=== PATIENT | male | born 1990 | race Hispanic/Latino ===

== ENCOUNTER 2016-09-19 00:07 | Emergency (ER) | payer BC ==
[2016-09-19 00:29] VITALS: BP 142/76; PULSE 82; RESP 16; TEMP 98.8; O2SAT 97
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
[2016-09-19] MEDS ORDERED: Sterile Water 10 ML IV ONE (01:31)
[2016-09-19] MEDS ORDERED: cefTRIAXone (Rocephin) 250 mg Inj IM ONE (01:32)
[2016-09-19] MEDS ORDERED: cefTRIAXone (Rocephin) 250 mg Inj ONE (01:32)
== END 2016-09-19 04:39 | disposition home or self-care (01) ==
LOC: H.ER 00:07
DX: Z20.2 Contact with and (suspected) exposure to infections with a predominantly sexual mode of transmission (principal)
CPT/HCPCS: 87390; 96372; 99285; J0696